=== PATIENT | male | born 1975 | race Caucasian/White ===

== ENCOUNTER 2018-02-18 12:04 | Inpatient (IN) ==
--- NOTE | 2018-02-18 12:20 | Emergency Department Note ---
Disposition Clinical Impression: Suicidal ideation, Depression Disposition: Admitted As Inpatient Condition: Good Psych HPI - General Stated Complaint: 1A eval Time Seen by Provider: 02/18/18 12:13 Source: patient Mode of arrival: ambulatory Nursing Notes Reviewed: Yes Vital Signs Reviewed: Yes - History of Present Illness HPI Narrative: 43-year-old male presents for suicidal ideation. Patient stated he has depression since 7 year old. Pt wanted to kill himself for a while. Yesterday pt thought to take multiple medication to . His niece came and stopped him. Pt is not on any antidepressant medications. No hallucination. Pt complaint: suicidal ideation Onset (ago): unknown - Related Data Previous Rx's Medication Instructions Recorded [place]-3/Dha/Epa/Fish Oil [Fish Oil 1 each PO TIDWM #90 capsule 09/20/15 1,000 mg Softgel] RX: Aspirin 81 mg PO DAILY tab.chew 09/20/15 RX: Cholecalciferol (Vitamin D3) 5,000 unit PO DAILY #30 capsule 09/20/15 [Dialyvite Vitamin D] RX: Lisinopril [Zestril] 40 mg PO DAILY #14 tablet 12/12/15 RX: Naproxen [Naprosyn] 500 mg PO BID PRN #15 tablet 12/12/15 OxyCODONE/APAP 5/325 [Percocet 2 each PO Q6HR PRN #15 tablet 03/09/16 5/325 MG] Allergies Allergy/AdvReac Type Severity Reaction Status Date / Time No Known Allergies Allergy Verified 01/16/16 20:20 Constitutional: Denies: fever, chills Eyes: Denies: eye pain ENT ED: Denies: ear pain Cardiovascular: Denies: chest pain Respiratory: Denies: cough Gastrointestinal: Denies: abdominal pain Genitourinary: Denies: urgency Musculoskeletal: Denies: back pain Integumentary: Denies: rash Neurological: Denies: headache Psychiatric: Reports: depression, suicidal thoughts. Denies: homicidal thoughts Endocrine: Denies: fatigue Hematological/Lymphatic: Denies: easy bleeding Allergic/Immunologic: Denies: facial swelling Past Medical History - Past Medical History Medical history: Reports: arthritis, cardiomyopathy, COPD, coronary artery disease, GERD, hyperlipidemia, hypertension, myocardial infarction, osteoporosis, SVT, TIA, other Surgical history: Reports: herniorrhaphy, orthopedic, other (Hand surgery), sinus surgery (Ear surgery), other (Left heart catheterization without stent. History of radiofrequency ablation procedure for PSVT.) Psychiatric history: Reports: no psych history - Social History Smoking Status: Former smoker Smokeless Tobacco Status: Yes Alcohol use: Reports: rarely Drug use: Reports: none Physical Exam - General Limitations: no limitations General appearance: alert - Head Head exam: atraumatic - Eye Eye exam: Present: normal appearance - ENT ENT exam: normal exam - Neck Neck exam: Present: normal inspection - Chest Chest inspection: Present: normal inspection - Respiratory Respiratory exam: Present: normal lung sounds bilaterally. Absent: respiratory distress, wheezes - Cardiovascular Cardiovascular exam: Present: regular rate - Abdominal Exam Abdominal exam: Present: soft - Extremities Exam Extremities exam: Present: normal inspection, full ROM. Absent: tenderness - Back Exam Back exam: Present: normal inspection, full ROM. Absent: tenderness - Neurological Exam Neurological exam: Present: alert, oriented X3 - Psychiatric Psychiatric exam: Present: normal affect, depressed - Skin Skin exam: Present: warm, intact Course Vital Signs Temperature 97.7 F 02/18/18 12:07 Pulse Rate 116 02/18/18 12:07 Respiratory Rate 22 02/18/18 12:07 Blood Pressure 184/124 02/18/18 12:07 O2 Sat by Pulse Oximetry 97 02/18/18 12:07 Temperature 97.7 F 02/18/18 12:07 Pulse Rate 116 02/18/18 12:07 Respiratory Rate 18 02/18/18 15:29 Blood Pressure 161/97 02/18/18 15:29 O2 Sat by Pulse Oximetry 97 02/18/18 12:07 Oxygen Delivery Oxygen Delivery Room Air Psych - MDM Narrative Medical decision making narrative: 43-year-old male with history of depression presents with suicidal thought and plan. Patient has not no other complaint. Patient is not currently on any antidepressant. Physical exam benign. labs are negative. A 1 evaluated. Patient will be admitted for depression and suicidal thought. Dr. Lemus saw the patient and agrees the above plan. - Lab Data Result diagrams: 02/18/18 12:35 02/18/18 12:35 Lab Results 02/18/18 02/18/18 02/18/18 Range/Units 12:35 12:35 12:35 WBC 8.7 (4.3-11.1) K/mcL RBC 5.62 H (4.19-5.50) M/mcL Hgb 16.1 (12.9-16.9) g/dL Hct 47.0 (37.5-50.1) % MCV 83.6 (83.0-100.0) fL MCH 28.6 (28.0-33.3) pg MCHC 34.3 (31.6-35.5) g/dL RDW 12.7 (11.5-14.5) % Plt Count 268 (140-400) K/mcL MPV 9.8 (9.4-12.4) fL Immature Gran % 0.8 (0-4) % Seg Neutrophils % 56.7 % Lymphocytes % 34.0 % Monocytes % 6.1 % Eosinophils % 1.7 % Basophils % 0.7 % Neutrophils # 4.9 (1.6-8.9) K/mcL Lymphocytes # 3.0 (0.6-4.6) K/mcL Monocytes # 0.5 (0.0-1.3) K/mcL Eosinophils # 0.2 (0.0-0.6) K/mcL Basophils # 0.1 (0.0-0.2) K/mcL Sodium 136 (136-145) mEq/L Potassium 3.7 (3.5-5.1) mEq/L Chloride 105 (98-107) mEq/L Carbon Dioxide 23 (23-29) mEq/L BUN 14 (6-20) mg/dL Creatinine 0.97 (0.70-1.30) mg/dL Est GFR ( Amer) > 60 (> 60) Est GFR (Non-Af Amer) > 60 (> 60) BUN/Creatinine Ratio 14 (6-26) Glucose 152 H (70-105) mg/dL Calculated Osmolality 285 (280-300) Calcium 9.3 (8.6-10.3) mg/dL Total Bilirubin 0.5 (0.3-1.0) mg/dL AST 13 (13-39) Units/L ALT 13 (7-52) Units/L Alkaline Phosphatase 76 (34-104) Units/L Serum Total Protein 6.8 (6.4-8.9) g/dL Albumin 4.5 (3.5-5.7) g/dL Globulin 2.3 L (2.4-3.5) g/dL Albumin/Globulin Ratio 2.0 (1.1-2.2) Urine Color (Yellow) Urine Clarity (Clear) Urine pH (5.0-8.0) pH Units Ur Specific [place] (1.010-1.025) Urine Protein (Neg-Trace) mg/dL Urine Glucose (UA) (Normal) mg/dL Urine Ketones (Negative) mg/dL Urine Blood (Negative) Urine Nitrite (Negative) Urine Bilirubin (Negative) Urine Urobilinogen (Normal) mg/dL Ur Leukocyte Esterase (Negative) Ur Culture Indicated? (NO) Salicylates < 2.5 L (15.0-30.0) mg/dL Urine Opiates Screen (Bmoykz=931) ng/mL Acetaminophen < 10 L (10-20) mcg/mL Ur Barbiturates Screen (Njeqil=311) ng/mL Ur Phencyclidine Scrn (Cutoff=25) ng/mL Ur Amphetamines Screen (Affltq=5368) ng/mL U Benzodiazepines Scrn (Eetlcl=640) ng/mL Urine Cocaine Screen (Cutoff= 300) ng/mL U Marijuana (THC) Screen (Cutoff = 50) ng/mL Ur Drug Screen Interp Ethyl Alcohol < 10 (Less than 10) mg/dL 02/18/18 02/18/18 Range/Units 13:35 13:35 WBC (4.3-11.1) K/mcL RBC (4.19-5.50) M/mcL Hgb (12.9-16.9) g/dL Hct (37.5-50.1) % MCV (83.0-100.0) fL MCH (28.0-33.3) pg MCHC (31.6-35.5) g/dL RDW (11.5-14.5) % Plt Count (140-400) K/mcL MPV (9.4-12.4) fL Immature Gran % (0-4) % Seg Neutrophils % % Lymphocytes % % Monocytes % % Eosinophils % % Basophils % % Neutrophils # (1.6-8.9) K/mcL Lymphocytes # (0.6-4.6) K/mcL Monocytes # (0.0-1.3) K/mcL Eosinophils # (0.0-0.6) K/mcL Basophils # (0.0-0.2) K/mcL Sodium (136-145) mEq/L Potassium (3.5-5.1) mEq/L Chloride (98-107) mEq/L Carbon Dioxide (23-29) mEq/L BUN (6-20) mg/dL Creatinine (0.70-1.30) mg/dL Est GFR ( Amer) (> 60) Est GFR (Non-Af Amer) (> 60) BUN/Creatinine Ratio (6-26) Glucose (70-105) mg/dL Calculated Osmolality (280-300) Calcium (8.6-10.3) mg/dL Total Bilirubin (0.3-1.0) mg/dL AST (13-39) Units/L ALT (7-52) Units/L Alkaline Phosphatase (34-104) Units/L Serum Total Protein (6.4-8.9) g/dL Albumin (3.5-5.7) g/dL Globulin (2.4-3.5) g/dL Albumin/Globulin Ratio (1.1-2.2) Urine Color Yellow (Yellow) Urine Clarity Clear (Clear) Urine pH 6.0 (5.0-8.0) pH Units Ur Specific [place] 1.016 (1.010-1.025) Urine Protein Negative (Neg-Trace) mg/dL Urine Glucose (UA) Normal (Normal) mg/dL Urine Ketones Negative (Negative) mg/dL Urine Blood Negative (Negative) Urine Nitrite Negative (Negative) Urine Bilirubin Negative (Negative) Urine Urobilinogen Normal (Normal) mg/dL Ur Leukocyte Esterase Negative (Negative) Ur Culture Indicated? NO (NO) Salicylates (15.0-30.0) mg/dL Urine Opiates Screen Negative (Ucitvu=093) ng/mL Acetaminophen (10-20) mcg/mL Ur Barbiturates Screen Negative (Gnnegz=979) ng/mL Ur Phencyclidine Scrn Negative (Cutoff=25) ng/mL Ur Amphetamines Screen Negative (Hzefee=8395) ng/mL U Benzodiazepines Scrn Negative (Fvcghw=429) ng/mL Urine Cocaine Screen Negative (Cutoff= 300) ng/mL U Marijuana (THC) Screen Negative (Cutoff = 50) ng/mL Ur Drug Screen Interp See Below Ethyl Alcohol (Less than 10) mg/dL Psychiatric Medical Clearance - Medical Clearance Checklist Medical History: No Social History Section defined Current Vitals: Last Vital Signs Temp 97.7 F 02/18/18 12:07 Pulse 116 02/18/18 12:07 Resp 18 02/18/18 15:29 BP 161/97 02/18/18 15:29 Pulse Ox 97 02/18/18 12:07 Psychiatric Lab Panel: Drug Levels and Toxicity 02/18/18 02/18/18 02/18/18 12:35 12:35 13:35 Urine Opiates Screen Negative Acetaminophen < 10 L Ur Barbiturates Screen Negative Ur Phencyclidine Scrn Negative Ur Amphetamines Screen Negative U Benzodiazepines Scrn Negative Urine Cocaine Screen Negative U Marijuana (THC) Screen Negative Ethyl Alcohol < 10 Abnormal Labs: Abnormal lab results RBC 5.62 M/mcL (4.19-5.50) H 02/18/18 12:35 Glucose 152 mg/dL (70-105) H 02/18/18 12:35 Globulin 2.3 g/dL (2.4-3.5) L 02/18/18 12:35 Salicylates < 2.5 mg/dL (15.0-30.0) L 02/18/18 12:35 Acetaminophen < 10 mcg/mL (10-20) L 02/18/18 12:35 Statement of Medical Clearance: I have evaluated the patient, reviewed diagnostic information, and certify that the patient's medical condition is sufficiently stable that transfer to the psychiatric unit does not pose a significant risk of deterioration.
[2018-02-18 13:15] LABS: Basophils # 0.1 K/mcL (0.0-0.2); Basophils % 0.7 %; Eosinophils # 0.2 K/mcL (0.0-0.6); Eosinophils % 1.7 %; Hemoglobin 16.1 g/dL (12.9-16.9); Immature Granulocytes % 0.8 % (0-4); Mean Corpuscular HGB Conc 34.3 g/dL (31.6-35.5); Mean Corpuscular Hemoglobin 28.6 pg (28.0-33.3); Mean Corpuscular Volume 83.6 fL (83.0-100.0); Mean Platelet Volume 9.8 fL (9.4-12.4); Monocytes # 0.5 K/mcL (0.0-1.3); Monocytes % 6.1 %; Neutrophils # 4.9 K/mcL (1.6-8.9); Platelet Count 268 K/mcL (140-400); Red Blood Count 5.62 M/mcL (4.19-5.50); Red Cell Distribution Width 12.7 % (11.5-14.5); Segmented Neutrophils % 56.7 %
[2018-02-18 13:28] LABS: Alanine Aminotransferase 13 Units/L (7-52); Albumin 4.5 g/dL (3.5-5.7); Alkaline Phosphatase 76 Units/L (34-104); Aspartate Amino Transferase 13 Units/L (13-39); BUN/Creatinine Ratio 14 (6-26); Bilirubin,Total 0.5 mg/dL (0.3-1.0); Blood Urea Nitrogen 14 mg/dL (6-20); Calcium 9.3 mg/dL (8.6-10.3); Carbon Dioxide 23 mEq/L (23-29); Chloride 105 mEq/L (98-107); Ethanol < 10 mg/dL (Less than 10); Globulin 2.3 g/dL (2.4-3.5); Glucose 152 mg/dL (70-105); Osmolality,Calculated 285 (280-300); Potassium 3.7 mEq/L (3.5-5.1); Sodium 136 mEq/L (136-145); Total Protein 6.8 g/dL (6.4-8.9); eGFR For Non-African Americans > 60 (> 60)
--- NOTE | 2018-02-18 13:29 | Emergency Department Note ---
Disposition Clinical Impression: Suicidal ideation, Depression Disposition: Admitted As Inpatient Condition: Good General Adult HPI - General Chief complaint: ED Psychiatric Symptoms Stated complaint: 1A eval Time Seen by Provider: 02/18/18 12:13 Source: patient Mode of arrival: ambulatory Limitations: no limitations - History of Present Illness Pain Scale: 9 - Related Data Previous Rx's Medication Instructions Recorded [place]-3/Dha/Epa/Fish Oil [Fish Oil 1 each PO TIDWM #90 capsule 09/20/15 1,000 mg Softgel] RX: Aspirin 81 mg PO DAILY tab.chew 09/20/15 RX: Cholecalciferol (Vitamin D3) 5,000 unit PO DAILY #30 capsule 09/20/15 [Dialyvite Vitamin D] RX: Lisinopril [Zestril] 40 mg PO DAILY #14 tablet 12/12/15 RX: Naproxen [Naprosyn] 500 mg PO BID PRN #15 tablet 12/12/15 OxyCODONE/APAP 5/325 [Percocet 2 each PO Q6HR PRN #15 tablet 03/09/16 5/325 MG] Allergies Allergy/AdvReac Type Severity Reaction Status Date / Time No Known Allergies Allergy Verified 01/16/16 20:20 Constitutional: Denies: fever, chills Eyes: Denies: eye pain ENT ED: Denies: ear pain Cardiovascular: Denies: chest pain Respiratory: Denies: cough Gastrointestinal: Denies: abdominal pain Genitourinary: Denies: urgency Musculoskeletal: Denies: back pain Integumentary: Denies: rash Neurological: Denies: headache Psychiatric: Reports: depression, suicidal thoughts. Denies: homicidal thoughts Endocrine: Denies: fatigue Hematological/Lymphatic: Denies: easy bleeding Allergic/Immunologic: Denies: facial swelling Past Medical History - Past Medical History Medical history: Reports: arthritis, cardiomyopathy, COPD, coronary artery disease, GERD, hyperlipidemia, hypertension, myocardial infarction, osteoporosis, SVT, TIA, other Surgical history: Reports: herniorrhaphy, orthopedic, other (Hand surgery), sinus surgery (Ear surgery), other (Left heart catheterization without stent. History of radiofrequency ablation procedure for PSVT.) Psychiatric history: Reports: no psych history - Social History Smoking Status: Former smoker Smokeless Tobacco Status: Yes Alcohol use: Reports: rarely Drug use: Reports: none Physical Exam - General Limitations: no limitations General appearance: alert Course Vital Signs Temperature 97.7 F 02/18/18 12:07 Pulse Rate 116 02/18/18 12:07 Respiratory Rate 22 02/18/18 12:07 Blood Pressure 184/124 02/18/18 12:07 O2 Sat by Pulse Oximetry 97 02/18/18 12:07 Temperature 98.5 F 02/18/18 19:56 Pulse Rate 93 02/18/18 19:56 Respiratory Rate 20 02/18/18 19:56 Blood Pressure 154/107 02/18/18 19:56 O2 Sat by Pulse Oximetry 97 02/18/18 12:07 Oxygen Delivery Oxygen Delivery Room Air Medical Decision Making - Lab Data Result diagrams: 02/18/18 12:35 02/18/18 12:35 Lab Results 02/18/18 02/18/18 02/18/18 Range/Units 12:35 12:35 12:35 WBC 8.7 (4.3-11.1) K/mcL RBC 5.62 H (4.19-5.50) M/mcL Hgb 16.1 (12.9-16.9) g/dL Hct 47.0 (37.5-50.1) % MCV 83.6 (83.0-100.0) fL MCH 28.6 (28.0-33.3) pg MCHC 34.3 (31.6-35.5) g/dL RDW 12.7 (11.5-14.5) % Plt Count 268 (140-400) K/mcL MPV 9.8 (9.4-12.4) fL Immature Gran % 0.8 (0-4) % Seg Neutrophils % 56.7 % Lymphocytes % 34.0 % Monocytes % 6.1 % Eosinophils % 1.7 % Basophils % 0.7 % Neutrophils # 4.9 (1.6-8.9) K/mcL Lymphocytes # 3.0 (0.6-4.6) K/mcL Monocytes # 0.5 (0.0-1.3) K/mcL Eosinophils # 0.2 (0.0-0.6) K/mcL Basophils # 0.1 (0.0-0.2) K/mcL Sodium 136 (136-145) mEq/L Potassium 3.7 (3.5-5.1) mEq/L Chloride 105 (98-107) mEq/L Carbon Dioxide 23 (23-29) mEq/L BUN 14 (6-20) mg/dL Creatinine 0.97 (0.70-1.30) mg/dL Est GFR ( Amer) > 60 (> 60) Est GFR (Non-Af Amer) > 60 (> 60) BUN/Creatinine Ratio 14 (6-26) Glucose 152 H (70-105) mg/dL Calculated Osmolality 285 (280-300) Calcium 9.3 (8.6-10.3) mg/dL Total Bilirubin 0.5 (0.3-1.0) mg/dL AST 13 (13-39) Units/L ALT 13 (7-52) Units/L Alkaline Phosphatase 76 (34-104) Units/L Serum Total Protein 6.8 (6.4-8.9) g/dL Albumin 4.5 (3.5-5.7) g/dL Globulin 2.3 L (2.4-3.5) g/dL Albumin/Globulin Ratio 2.0 (1.1-2.2) Urine Color (Yellow) Urine Clarity (Clear) Urine pH (5.0-8.0) pH Units Ur Specific Lane (1.010-1.025) Urine Protein (Neg-Trace) mg/dL Urine Glucose (UA) (Normal) mg/dL Urine Ketones (Negative) mg/dL Urine Blood (Negative) Urine Nitrite (Negative) Urine Bilirubin (Negative) Urine Urobilinogen (Normal) mg/dL Ur Leukocyte Esterase (Negative) Ur Culture Indicated? (NO) Salicylates < 2.5 L (15.0-30.0) mg/dL Urine Opiates Screen (Ounhmo=145) ng/mL Acetaminophen < 10 L (10-20) mcg/mL Ur Barbiturates Screen (Rmdnzk=072) ng/mL Ur Phencyclidine Scrn (Cutoff=25) ng/mL Ur Amphetamines Screen (Fgsryw=4745) ng/mL U Benzodiazepines Scrn (Mibnko=749) ng/mL Urine Cocaine Screen (Cutoff= 300) ng/mL U Marijuana (THC) Screen (Cutoff = 50) ng/mL Ur Drug Screen Interp Ethyl Alcohol < 10 (Less than 10) mg/dL 02/18/18 02/18/18 Range/Units 13:35 13:35 WBC (4.3-11.1) K/mcL RBC (4.19-5.50) M/mcL Hgb (12.9-16.9) g/dL Hct (37.5-50.1) % MCV (83.0-100.0) fL MCH (28.0-33.3) pg MCHC (31.6-35.5) g/dL RDW (11.5-14.5) % Plt Count (140-400) K/mcL MPV (9.4-12.4) fL Immature Gran % (0-4) % Seg Neutrophils % % Lymphocytes % % Monocytes % % Eosinophils % % Basophils % % Neutrophils # (1.6-8.9) K/mcL Lymphocytes # (0.6-4.6) K/mcL Monocytes # (0.0-1.3) K/mcL Eosinophils # (0.0-0.6) K/mcL Basophils # (0.0-0.2) K/mcL Sodium (136-145) mEq/L Potassium (3.5-5.1) mEq/L Chloride (98-107) mEq/L Carbon Dioxide (23-29) mEq/L BUN (6-20) mg/dL Creatinine (0.70-1.30) mg/dL Est GFR ( Amer) (> 60) Est GFR (Non-Af Amer) (> 60) BUN/Creatinine Ratio (6-26) Glucose (70-105) mg/dL Calculated Osmolality (280-300) Calcium (8.6-10.3) mg/dL Total Bilirubin (0.3-1.0) mg/dL AST (13-39) Units/L ALT (7-52) Units/L Alkaline Phosphatase (34-104) Units/L Serum Total Protein (6.4-8.9) g/dL Albumin (3.5-5.7) g/dL Globulin (2.4-3.5) g/dL Albumin/Globulin Ratio (1.1-2.2) Urine Color Yellow (Yellow) Urine Clarity Clear (Clear) Urine pH 6.0 (5.0-8.0) pH Units Ur Specific Lane 1.016 (1.010-1.025) Urine Protein Negative (Neg-Trace) mg/dL Urine Glucose (UA) Normal (Normal) mg/dL Urine Ketones Negative (Negative) mg/dL Urine Blood Negative (Negative) Urine Nitrite Negative (Negative) Urine Bilirubin Negative (Negative) Urine Urobilinogen Normal (Normal) mg/dL Ur Leukocyte Esterase Negative (Negative) Ur Culture Indicated? NO (NO) Salicylates (15.0-30.0) mg/dL Urine Opiates Screen Negative (Fulpsb=066) ng/mL Acetaminophen (10-20) mcg/mL Ur Barbiturates Screen Negative (Hgvctc=270) ng/mL Ur Phencyclidine Scrn Negative (Cutoff=25) ng/mL Ur Amphetamines Screen Negative (Oadmku=9855) ng/mL U Benzodiazepines Scrn Negative (Zzfzmt=564) ng/mL Urine Cocaine Screen Negative (Cutoff= 300) ng/mL U Marijuana (THC) Screen Negative (Cutoff = 50) ng/mL Ur Drug Screen Interp See Below Ethyl Alcohol (Less than 10) mg/dL Attestation Statement - Attestation Attestation: Medical screening examination/treatment/procedure(s) were conducted as a shared visit with non-physician practitioner(s) and myself. I personally evaluated the patient during the encounter. Patient with previous psych history including previous SI attempts. Patient took 1 extra pill of his "heart medication". Patient took this last night. No new symptoms. Patient unsure what medication this was. Patient was about to take his entire bottle until his nephew came in his room. Patient has tried hanging himself in the past. Patient states he still feels like he wants to hurt himself and is not "scared of dying". Patient will undergo further laboratory clearance. Patient will be seen by the mental health team and likely require admission/placement. Awake alert and oriented 3, No acute distress, regular rate and rhythm, clear to auscultation bilaterally, no significant peripheral edema.
[2018-02-18 13:30] LABS: Acetaminophen < 10 mcg/mL (10-20); Salicylate < 2.5 mg/dL (15.0-30.0)
[2018-02-18 13:51] LABS: Bilirubin,Urine Negative (Negative); Blood,Urine Negative (Negative); Clarity,Urine Clear (Clear); Color,Urine Yellow (Yellow); Glucose,Urine (UA) Normal (Normal); Ketones,Urine Negative (Negative); Leukocyte Esterase,Urine Negative (Negative); Nitrite,Urine Negative (Negative); Protein,Urine Negative (Neg-Trace); Specific Gravity,Urine 1.016 (1.010-1.025); Urobilinogen,Urine Normal (Normal)
[2018-02-18 14:10] LABS: Amphetamine Screen,Urine Negative ng/mL (Cutoff=1000); Barbiturate Screen,Urine Negative ng/mL (Cutoff=200); Benzodiazepines Screen,Urine Negative ng/mL (Cutoff=200); Cannabinoid Screen,Urine Negative ng/mL (Cutoff = 50); Cocaine Screen,Urine Negative ng/mL (Cutoff= 300); Opiate Screen,Urine Negative ng/mL (Cutoff=300); Phencyclidine Screen,Urine Negative ng/mL (Cutoff=25)
[2018-02-18] MEDS ORDERED: *HR* LORazepam 1 MG TABLET PO PRN (16:52)
[2018-02-18] MEDS ORDERED: *HR* LORazepam 2 MG/ML VIAL IM PRN (16:52)
[2018-02-18] MEDS ORDERED: Haloperidol Lactate 5 MG/ML VIAL IM PRN (16:52)
[2018-02-18] MEDS ORDERED: Mag Hydrox/Al Hydrox/Simeth 30 ML UDC PO PRN (16:52)
[2018-02-18] MEDS ORDERED: MOM Conc 10 ML UD.LIQ PO PRN (16:52)
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
--- NOTE | 2018-02-18 18:35 | Internal Medicine Consult Note ---
Date of Encounter: 02/18/18 Time of Encounter: 18:30 - Assessment and plan (1) Hypertension Current Visit: Yes Status: Acute Assessment and plan: Please obtain EKG- if any ST-T changes or abnormalities obtain cardiology consult as per chart review in 2016 D/C summary states - " He was evaluated for possible coronary artery disease and that was ruled out with Lexiscan pharmacological test and normal echocardiogram, cardiac enzymes, EKG." Amlodipine 5 mg daily and titrate as per BP consider restarting ASA if not CI vitals Q4H lipid panel, TSH in AM low fat diet will sign off - please call if any further questions thank you for consult stress test 09/19/15: Impression: Pharmacologic stress ECG is negative for ischemia at level of heart rate achieved. Patient described chest discomfort during stress. This is a nonspecific finding with Lexiscan. Gated EF = 55%. Medium size, mild to moderate intensity, fixed perfusion defects involving the basal to mid inferoseptal and apical septum segments. Wall motion appears normal. Findings are consistent with artifact. Perfusion imaging was negative for ischemia or infarct. TTE 09/19/15: Impressions: Technically sub-optimal due to poor echocardiographic windows. LVEF 55%. Mildly dilated left ventricle. Mild left ventricular diastolic dysfunction. Mildly dilated right ventricle with normal appearing function. Moderately dilated left atrium. Unable to accurately estimate RVSP due to lack of adequate TR envelope. No significant valvular dysfunction. Qualifiers: Hypertension type: essential hypertension Qualified Code(s): I10 - Essential (primary) hypertension (2) Obesity (BMI 30.0-34.9) Current Visit: Yes Status: Acute Assessment and plan: low fat diet counseled on improtance of nutrition Lipid panel in AM - Time Spent With Patient Total time spent is greater than 50% in coordination of care (as documented) at patient's floor/unit and/or counseling patient: Internal Medicine - CN: HPI - Data of Consult Consult date: 02/18/18 Requesting Physician: Deyanira Aguilar - Consult Narrative Reason for consult: elevated BP History of present illness: Mr. 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 for Suicidal ideation. medicine was consulted for BP control. Patient came to ED voluntarily because he had been very depressed and was thinking of overcosing on his meds for his blood pressure. Patient does report that he was previously treated for high blood pressure however his primary care physician has stopped all his blood pressure medications along with aspirin that he was supposed to take. He also reports that there were other medications that were recommended for him however he cannot recall what they are. Vision is a poor historian. So most of the information was obtained from the chart. As per chart review he was admitted in 2016 for chest pain and "He was evaluated for possible coronary artery disease and that was ruled out with Lexiscan pharmacological test and normal echocardiogram, cardiac enzymes, EKG." Currently he denies fever, chills, nausea, vomiting, diarrhea, chest pain, shortness of breath, palpitations, heat or cold intolerance. Does report that in the past he has had chest pain but he does not want any treatment as he wants to "." he reports that his pains are at rest and he does not walk much so he does not know if he has chest pain on ambulation or not. Past Med Surg Social Fam HX - Past Medical History Medical history: arthritis, cardiomyopathy, COPD, coronary artery disease, GERD, hyperlipidemia, hypertension, myocardial infarction, osteoporosis, SVT, TIA, other Psychiatric history: previous psychiatric hospitalization - Past Surgical History Surgical History: herniorrhaphy, orthopedic, other (Hand surgery), sinus surgery (Ear surgery), other (Left heart catheterization without stent. History of radiofrequency ablation procedure for PSVT.) Additional surgical history: cardiac ablation x 9, hand sx - Social History Smoking Status: Former smoker Smokeless Tobacco Status: Yes Alcohol use: rarely Drug use: none All systems: reviewed and no additional remarkable complaints except as stated Internal Medicine - CN: Meds Aspirin 81 mg PO DAILY tab.chew 09/20/15 [Rx] Cholecalciferol (Vitamin D3) [Dialyvite Vitamin D] 5,000 unit PO DAILY #30 capsule 09/20/15 [Rx] [place]-3/Dha/Epa/Fish Oil [Fish Oil 1,000 mg Softgel] 1 each PO TIDWM #90 capsule 09/20/15 [Rx] Lisinopril [Zestril] 40 mg PO DAILY #14 tablet 12/12/15 [Rx] Naproxen [Naprosyn] 500 mg PO BID PRN #15 tablet 12/12/15 [Rx] OxyCODONE/APAP 5/325 [Percocet 5/325 MG] 2 each PO Q6HR PRN #15 tablet 03/09/16 [Rx] Allergy/AdvReac Type Severity Reaction Status Date / Time No Known Allergies Allergy Verified 01/16/16 20:20 Hospitalist - CN: Exam - Constitutional Vitals: Temp Pulse Resp BP Pulse Ox 98.9 F 97 16 152/96 97 02/18/18 15:40 02/18/18 18:00 02/18/18 18:00 02/18/18 18:00 02/18/18 12:07 Exam: General: Patient is alert, oriented, no acute distress, poor hygiene, obese Head: atraumatic, normocephalic, Eye: normal appearance, PERRL, no scleral icterus, no conjunctival injection ENT: mucous membranes moist, normal external ear exam Neck: normal inspection, trachea midline, full ROM, no carotid bruits Chest: normal inspection, symmetric chest rise Respiratory: Good respiratory effort. Bilateral breath sounds are clear without wheezing, crackles, or rhonchi. Cardiovascular: Regular rate and rhythm. s1 and s2 No clicks, rubs, gallops, or murmors. Abdomen: Bowel sounds present normoactive x-4 quadrants. Abdomen is soft, nondistended. no Epigastric tenderness. No guarding or rebound. No organomegaly noted, obese musculoskeletal: Spontaneously moving all extremities. no edema, no calf tenderness Skin: warm, dry, intact. Neuro: Alert and oriented to self and place. Sensation light touch intact. Patient Service Specialist nial nerves 2-12 is intact. Not aphasic, gait is steady, no focal deficit Psych: Patient's affect is normal Internal Medicine - CN: Reslt - Labs CBC & Chem 7: 02/18/18 12:35 02/18/18 12:35 Labs: Short CBC 02/18/18 Range/Units 12:35 WBC 8.7 (4.3-11.1) K/mcL Hgb 16.1 (12.9-16.9) g/dL Hct 47.0 (37.5-50.1) % Plt Count 268 (140-400) K/mcL Neutrophils # 4.9 (1.6-8.9) K/mcL BMP 02/18/18 12:35 Sodium 136 Potassium 3.7 Chloride 105 Carbon Dioxide 23 BUN 14 Creatinine 0.97 Glucose 152 H Calcium 9.3 Liver Function 02/18/18 Range/Units 12:35 Total Bilirubin 0.5 (0.3-1.0) mg/dL AST 13 (13-39) Units/L ALT 13 (7-52) Units/L Alkaline Phosphatase 76 (34-104) Units/L Albumin 4.5 (3.5-5.7) g/dL Urine 02/18/18 Range/Units 13:35 Urine Color Yellow (Yellow) Urine Clarity Clear (Clear) Urine pH 6.0 (5.0-8.0) pH Units Ur Specific [place] 1.016 (1.010-1.025) Urine Protein Negative (Neg-Trace) mg/dL Urine Glucose (UA) Normal (Normal) mg/dL Consult Discharge Plan - Plan Referrals: NONE,PCP [Primary Care Provider] -
[2018-02-18] MEDS: amLODIPine 5 MG TABLET PO SCH (20:19)
[2018-02-18] MEDS ORDERED: traZODone 50 MG TABLET PO SCH (21:00)
[2018-02-18] MEDS: hydrOXYzine pamoate 25 MG CAPSULE PO PRN (21:52)
[2018-02-19] MEDS: amLODIPine 5 MG TABLET PO SCH (07:55)
[2018-02-19 07:59] LABS: Chol/HDL Ratio 5.1 (0-4.9)
[2018-02-19 08:12] LABS: Thyroid Stimulating Hormone 0.599 mcIU/mL (0.340-5.600)
--- NOTE | 2018-02-19 12:02 | Psychiatry Progress Note ---
Date of Encounter: 02/19/18 Time of Encounter: 11:40 Subjective Interval history: Patient admitted with severe depression and SI. Patient also with psychotic symptoms, A/V hallucinations and paranoid delusions. Pt. was only getting 2 hours of sleep at night. Patient started on Invega 3mg/hs and Trazodone 100mg/hs for sleep. Hospitalist started patient on Norvasc for hypertension. Today patient states that he slept all night and then had to go back to bed after breakfast. He thinks the dose of Trazodone is too high. He states that he is not as depressed and denies SI. Patient continue to have ideas of reference and paranoia. Patient states that he can read minds, but does not wa nt to get into it with anybody here, so he's trying not to do this. Patient voices concern about his cat, but seems reluctant and laughs about giving his nephews with whom he lives the alves to his room to feed his cat. Paiient is somewhat guarded and seems to be endorsing improvement as a way to be discharged. Review of Systems Constitutional: Denies: fever, chills, weakness, weight change Eyes: Denies: eye pain, vision change Ears, Nose, Throat: Denies: ear pain, throat pain, dental pain, hearing loss, congestion Cardiovascular: Denies: chest pain, palpitations, dyspnea on exertion Respiratory: Denies: cough, dyspnea, wheezes Gastrointestinal: Denies: abdominal pain, nausea, vomiting, diarrhea, constipation Musculoskeletal: Reports: back pain, joint pain, myalgia Neurological: Reports: other Psychiatric: Reports: depression, suicidal ideation, hopelessness, other Results - Vital Signs Vital Signs: Temp Pulse Resp BP Pulse Ox 97.4 F L 76 14 148/85 96 02/19/18 08:31 02/19/18 08:31 02/19/18 08:31 02/19/18 08:31 02/19/18 08:31 - Drug Levels and Toxicology Drug Levels and Toxicology: Drug Levels and Toxicity 02/18/18 02/18/18 02/18/18 12:35 12:35 13:35 Urine Opiates Screen Negative Acetaminophen < 10 L Ur Barbiturates Screen Negative Ur Phencyclidine Scrn Negative Ur Amphetamines Screen Negative U Benzodiazepines Scrn Negative Urine Cocaine Screen Negative U Marijuana (THC) Screen Negative Ethyl Alcohol < 10 - Labs Labs: Laboratory Results - last 24 hr 02/18/18 02/18/18 02/18/18 12:35 12:35 12:35 WBC 8.7 RBC 5.62 H Hgb 16.1 Hct 47.0 MCV 83.6 MCH 28.6 MCHC 34.3 RDW 12.7 Plt Count 268 MPV 9.8 Immature Gran % 0.8 Seg Neutrophils % 56.7 Lymphocytes % 34.0 Monocytes % 6.1 Eosinophils % 1.7 Basophils % 0.7 Neutrophils # 4.9 Lymphocytes # 3.0 Monocytes # 0.5 Eosinophils # 0.2 Basophils # 0.1 Sodium 136 Potassium 3.7 Chloride 105 Carbon Dioxide 23 BUN 14 Creatinine 0.97 Est GFR ( Amer) > 60 Est GFR (Non-Af Amer) > 60 BUN/Creatinine Ratio 14 Glucose 152 H Calculated Osmolality 285 Calcium 9.3 Total Bilirubin 0.5 AST 13 ALT 13 Alkaline Phosphatase 76 Serum Total Protein 6.8 Albumin 4.5 Globulin 2.3 L Albumin/Globulin Ratio 2.0 Triglycerides Cholesterol LDL Cholesterol, Calc VLDL Cholesterol, Calc HDL Cholesterol Cholesterol/HDL Ratio TSH Urine Color Urine Clarity Urine pH Ur Specific [place] Urine Protein Urine Glucose (UA) Urine Ketones Urine Blood Urine Nitrite Urine Bilirubin Urine Urobilinogen Ur Leukocyte Esterase Ur Culture Indicated? Salicylates < 2.5 L Urine Opiates Screen Acetaminophen < 10 L Ur Barbiturates Screen Ur Phencyclidine Scrn Ur Amphetamines Screen U Benzodiazepines Scrn Urine Cocaine Screen U Marijuana (THC) Screen Ur Drug Screen Interp Ethyl Alcohol < 10 02/18/18 02/18/18 02/19/18 13:35 13:35 07:24 WBC RBC Hgb Hct MCV MCH MCHC RDW Plt Count MPV Immature Gran % Seg Neutrophils % Lymphocytes % Monocytes % Eosinophils % Basophils % Neutrophils # Lymphocytes # Monocytes # Eosinophils # Basophils # Sodium Potassium Chloride Carbon Dioxide BUN Creatinine Est GFR ( Amer) Est GFR (Non-Af Amer) BUN/Creatinine Ratio Glucose Calculated Osmolality Calcium Total Bilirubin AST ALT Alkaline Phosphatase Serum Total Protein Albumin Globulin Albumin/Globulin Ratio Triglycerides 104 Cholesterol 177 LDL Cholesterol, Calc 121 H VLDL Cholesterol, Calc 21 HDL Cholesterol 35 L Cholesterol/HDL Ratio 5.1 H TSH 0.599 Urine Color Yellow Urine Clarity Clear Urine pH 6.0 Ur Specific [place] 1.016 Urine Protein Negative Urine Glucose (UA) Normal Urine Ketones Negative Urine Blood Negative Urine Nitrite Negative Urine Bilirubin Negative Urine Urobilinogen Normal Ur Leukocyte Esterase Negative Ur Culture Indicated? NO Salicylates Urine Opiates Screen Negative Acetaminophen Ur Barbiturates Screen Negative Ur Phencyclidine Scrn Negative Ur Amphetamines Screen Negative U Benzodiazepines Scrn Negative Urine Cocaine Screen Negative U Marijuana (THC) Screen Negative Ur Drug Screen Interp See Below Ethyl Alcohol - Impressions Patient has elevated LDL and elevated ratio. Cholesterol WNL. Dietary counseling and possible statin as outpatient. Assessment and Plan (1) Suicidal ideation Current visit: Yes Status: Acute Plan: Continue hospitalization, Close observation, Suicide Precautions per unit protocol, Encourage participation in unit milieu, Group Therapy, Monitor sleep, Monitor appetite Risks, benefits, side effects, alternatives discussed w/pt: Yes Patient agreeable to treatment: Yes (2) Schizo-affective schizophrenia, chronic condition with acute exacerbation Current visit: Yes Status: Acute Plan: Continue hospitalization, Close observation, Suicide Precautions per unit protocol, Encourage participation in unit milieu, Group Therapy, Monitor sleep, Monitor appetite Additional Plan: Increase oral Invega to 6mg/hs. Decrease Trazodone to 75g/hs due to excessvie daytime sedation. Risks, benefits, side effects, alternatives discussed w/pt: Yes Patient agreeable to treatment: Yes (3) Hypertension Current visit: Yes Status: Acute Qualifiers: Hypertension type: essential hypertension Qualified Code(s): I10 - Jaqueline lamb (primary) hypertension Consult Discharge Plan - Plan Referrals: NONE,PCP [Primary Care Provider] - Psychiatry Exam - Constitutional Vitals: Temp Pulse Resp BP Pulse Ox 97.4 F L 76 14 148/85 96 02/19/18 08:31 02/19/18 08:31 02/19/18 08:31 02/19/18 08:31 02/19/18 08:31 General appearance: age & developmentally appropriate, well-groomed, well- nourished - Musculoskeletal Gait: normal Station: relaxed Strength & Tone: normal for patient - Psychiatric Patient Orientation: Yes Person, Yes Time, Yes Place Level of alertness: Alert Behavior: cooperative, restless, guarded Psychomotor activity: Normal Eye Contact: Maintains Eye Contact Mood Description: Expansive Patient description of mood: not depressed Affect description: labile Speech Volume: Normal Speech pattern: fluent ( ), spontaneous, excessive Language & Vocabulary: grade school level Thought Process: Circumstantial, Flight of Ideas Thought Content: Yes Paranoid delusion, Yes Thought broadcasting, Yes Thought insertion Perceptual Disturbances: No Auditory hallucinations, No Visual hallucinations Attention Span Ability: Capable of Focused Attention Memory Description: Grossly Intact Patient Reliability: Reliable Historian Fund of knowledge: Yes below average Intelligence Estimate: Average Judgment: Limited Insight: Partial
[2018-02-19] MEDS: hydrOXYzine pamoate 25 MG CAPSULE PO PRN (20:23)
[2018-02-19] MEDS ORDERED: traZODone 50 MG TABLET PO SCH (21:00)
[2018-02-20] MEDS: amLODIPine 5 MG TABLET PO SCH (09:41)
[2018-02-20 09:56] VITALS: BP 147/91
--- NOTE | 2018-02-20 14:36 | Discharge Summary ---
Date of Encounter: 02/20/18 Time of Encounter: 12:30 Diagnosis - Discharge Diagnosis (1) Suicidal ideation Priority: Primary Status: Acute Comments: Patient had plan (2) Schizo-affective schizophrenia, chronic condition with acute exacerbation Priority: Secondary Status: Acute Comments: ON no medications (3) Hypertension Priority: Secondary Status: Chronic Comments: patient started on NOrvasc 5mg/d Qualifiers: Hypertension type: essential hypertension Qualified Code(s): I10 - Essential (primary) hypertension Medications - Discharge Medications Prescriptions: amLODIPine [Norvasc] 5 mg PO DAILY 30 Days #30 tablet Paliperidone [Invega] 6 mg PO HS 30 Days #60 tab.er.24 traZODone [TraZODone] 50 mg PO HS 30 Days #30 tablet Naproxen [Naprosyn] 250 mg PO BID tablet 02/20/18 [Rx] Paliperidone [Invega] 6 mg PO HS 30 Days #60 tab.er.24 02/20/18 [Rx] amLODIPine [Norvasc] 5 mg PO DAILY 30 Days #30 tablet 02/20/18 [Rx] traZODone [TraZODone] 50 mg PO HS 30 Days #30 tablet 02/20/18 [Rx] Allergy/AdvReac Type Severity Reaction Status Date / Time No Known Allergies Allergy Verified 01/16/16 20:20 Results Procedures and tests throughout hospitalization: Completed Lab Orders Category Date Time Status Acetaminophen Stat Lab 02/18/18 12:35 Completed Complete Blood Count [HEME] Stat Lab 02/18/18 12:35 Completed Comprehensive Metabolic Panel Stat Lab 02/18/18 12:35 Completed Drug Screen, Urine [UCHEM] Stat Lab 02/18/18 13:35 Completed Ethanol Stat Lab 02/18/18 12:35 Completed Glucose Routine Lab 02/19/18 07:24 Completed Lipid Panel AM 0400 Lab 02/19/18 07:24 Completed Salicylate Stat Lab 02/18/18 12:35 Completed Thyroid Stimulating Hormone AM 0400 Lab 02/19/18 07:24 Completed Urinalysis Reflex Cult & Micro [URIN] Stat Lab 02/18/18 13:35 Completed - Impressions LDL and ratio slightly elevated Provider Date of admission: 02/18/18 15:25 Primary care physician: PCP NONE Consults: 02/18/18 16:56 Consult to Hospitalist [CONS] Routine Consulting Provider: Hospitalist Emely Reason for Consult: High blood pressure and pain management @ 12:07 184/124 @ 15:29 161/97 @15:40 169/124 Time Notified: 17:00 Call Completed: Yes Discharging clinician: Deyanira Aguilar Psychiatry Exam - Constitutional Vitals: Temp Pulse Resp BP Pulse Ox 98.3 F 76 20 147/91 96 02/20/18 09:00 02/20/18 09:00 02/20/18 09:00 02/20/18 09:00 02/20/18 09:00 General appearance: age & developmentally appropriate, well-groomed, well-n ourished - Musculoskeletal Gait: normal Station: relaxed Strength & Tone: normal for patient - Psychiatric Patient Orientation: Yes Person, Yes Time, Yes Place Level of alertness: Alert Behavior: calm, cooperative, distractible Psychomotor activity: Normal Eye Contact: Maintains Eye Contact Mood Description: Depressed Patient description of mood: mild to moderate depression Affect description: congruent with mood, full range Speech Volume: Normal Speech pattern: normal rate, normal rhythm, normal tone, fluent, spontaneous Language & Vocabulary: consistent with education Thought Process: Logical, Linear, Tangential, Flight of Ideas Thought Content: Yes Ideas of reference, Yes Thought broadcasting Perceptual Disturbances: No Auditory hallucinations, No Visual hallucinations Attention Span Ability: Capable of Focused Attention Memory Description: Grossly Intact Patient Reliability: Reliable Historian Fund of knowledge: Yes abstraction ability, Yes aware of current events Intelligence Estimate: Below Average Judgment: Fair Insight: Partial Hospital Course Hospital course: Mr. Wisdom is a 43 year old male with a history of psychosis and mood disorder. HE was admitted with suicidal ideation with a plan to overdose on his blood pressure medications. Patient has paranoid ideation and some delusions about reading people's minds and thought broadcasting. Patient had history of hospitalization as a teen. Patient was no medication at admission. Patient's diagnosis determined to be Schizoaffective, mixed state with suicidal ideation.Patient was agreeable to starting INvega which was titrated to 6mg/d. Since patient claimed he was only sleeping 2 hours a night, Trazodone 100mg was started. This dose produced morning sedation, so his dose was decreased to 75mg/hs which still was a little too sedating. Patient showed improvement after having a good night's sleep, but still was depressed with some underlying manic symptoms. By the time his 72 hour hold was nearly up, patient declared that he was not suicidal and had no suicidal ideation, intent or plan. Patient rated his depression a 3 and no anxiety. He stated he slept well and appetite was good. Patient tolerated the Invega well without side effects. He stated that he would be willing to stay on the medication and follow up as outpatient. Patient was started on Norvasc 5mg/d by higher level teaching assistant. This medication will be prescribed with follow up with PCP. Time spent discussing smoking cessation with patient: 3 to 10 minutes Does patient wish to continue nicotine replacement upon disc: No - Time Spent with Patient Total time spent providing and/or coordinating discharge services: Less than 30 minutes Assessment and Plan - Patient/Caregiver Discharge Instructions Activity: resume usual activities as tolerated Diet: regular diet - Follow up Plan Follow up with: Carlyn Garcia [facility] [Outside] - 03/09/18 9:30 am (The above appointment is with Kimber. Please complete and bring the [facility] intake packet you were provided at the hospital to this appointment. When you come to your first appointment, you will be meeting with business office staff, meeting with a counselor, and developing a treatment plan. You will receive follow- up appointments for on-going services, which could include community support, mental health and substance abuse counseling, groups/partial hospitalization programming and medication assisted treatment. You will also need to bring the following to your first appointment as well: 1) proof of household income (two consecutive pay stubs, social security award letter, bank statement, statement letter from [facility], child support statement, IRS 1040 or W2 form, or a statement from the person who financially supports you stating they help provide for your basic needs), 2) proof of residency (drivers license, a piece of mail showing your address, a statement from person you live with verifying you live at their address), 3) photo ID, 4) your insurance card (if you have commercial insurance you must call to obtain a prior authorization number before you arrive to your first appointment) and 5) if you do not have insurance but have applied for Medicaid, please bring verification you have applied. The above appointment(s) reflects first availability. You may contact the office regularly to check for cancellations that may allow you to be seen sooner.) Kath Petty [Advanced Practice Nurse] - 03/02/18 9:30 am (The above appointment is with Kath Petty CNP, at [facility]. This appointment is to establish you with a primary care provider. Your needs for medication will be assessed and treated as indicated as well. Please arrive 15 minutes early to complete paperwork. Please bring your insurance card, photo ID and list of current medications to your first appointment. The above appointment(s) reflects first availability. You may contact the office regularly to check for cancellations that may allow you to be seen sooner.) Overall status at discharge: Stable Disposition: Home, Self-Care Quality - Multiple Antipsychotics Patient discharged on 2 or more antipsychotic medications: No Procedures - Procedures Procedures: Medication Management, Crisis Stabilization, Supportive Therapy, Group Therapy, Psychoeducational Therapy
--- NOTE | 2018-02-20 16:46 | Electrocardiograph Report ---
[address] [address] Test Date: 2018-02-18 Pat Name: Robin Wisdom Department: 101 Room: 1A Gender: M Edge Roller: KAVITA : 1975 Requested By: Mayelin Oropeza Order Number: [id number] Reading MD: Earnest Enriquez Measurements Intervals [place] Rate: 80 P: 49 LA: 142 QRS: 2 QRSD: 99 T: 29 QT: 391 QTc: 427 Interpretive Statements SINUS RHYTHM Electronically Signed On 02-20-2018 16:44:29 EST by Earnest Enriquez
== END 2018-02-20 17:15 | disposition home or self-care (01) | DRG 750 ==
LOC: EMEROOARM 12:04 → 1ANU 15:25 → SUATTDRO 15:25 → 1ANU 15:34
PROVIDERS: ADMIT Psychiatry & Neurology Psychiatry; ATTEND Psychiatry & Neurology Psychiatry